=== PATIENT | female | born 1995 | race Caucasian/White ===

== ENCOUNTER 2017-07-12 08:01 | Emergency (ER) | payer SELFPAY ==
[~2017-07-12] VITALS: Ht 160 cm; Wt 65.8 kg
[~2017-07-12 08:01] MED LIST: AZIT250T PO; BCP; CEFP500T4 PO; CEPH500C PO; CIPR500T78 PO; CLIN300C3 PO; Cortisporin otic; DEPRESSION MEDS; FLINTSTONE1 TAB.CHE4 PO; FRS325T PO; HYDR-3454 PO; HYDR-757 PO; IBP600T1 PO; LORA1TAB59 PO; MECL-124 PO; METH4TAB PO; METR500T PO; NAPR-243 PO; NITR-65 PO; NITR100C3 PO; ONDA4TAB11 PO; ONDA4TAB8 PO; ONDA8TAB9 PO; ONDAN4ODT PO; OXYC-12 PO; SULF1TAB35 PO; TRAM50TA2 PO; TRIA10.8 NSEACH
--- OUTSIDE RECORDS SUMMARY | 2017-07-12 08:07 | XMS REPORT ---
Author ELIZABETH Fontenot [facility] [employer] Address Unknown Phone Unavailable Care Team Providers Care Enrollment Counselor Name Role Phone ELIZABETH CHAVEZ CP Unavailable Allergies, Adverse Reactions, Alerts Substance Reaction Event Type Penicillin G Potassium Info Not Available Drug Allergy Problems Problem Type Condition Code Onset Dates Condition Status Assessment Dental caries K02.9 Active Medications No Known Medications Procedures Procedure Coding System Code Date EXTRAC ERUPTED TOOTH/EXPOSED ROOT CPT-4 D7140 March 30, 2016 Vital Signs Date/Time: March 30, 2016 Blood Pressure Diastolic 82 mmHg Blood Pressure Systolic 130 mmHg Results No Known Results Summary Purpose eClinicalWorks Submission
--- OUTSIDE RECORDS SUMMARY | 2017-07-12 08:10 | XMS REPORT | Continuity of Care Document ---
Author Author [facility] Organization [facility] Address Unknown Phone Unavailable Allergies Active Description Code Type Severity Reaction Onset Reported/Identified Relationship to Patient Clinical Status Yes Penicillins [id number] Drug Allergy Unknown RASH 11/14/2015 Medications Problems Date Dx Coded Attending Type Code Diagnosis Diagnosed By 11/23/2012 Ot 599.0 URIN TRACT INFECTION NOS 11/23/2012 Ot 644.03 THRT WILLIAM LABOR-ANTEPART 11/23/2012 Ot 646.63 INFECTION-ANTEPARTUM 11/26/2012 Ot 646.13 EDEMA IN PREG-ANTEPARTUM 12/06/2012 Ot 599.0 URIN TRACT INFECTION NOS 12/06/2012 Ot 644.03 THRT WILLIAM LABOR-ANTEPART 12/06/2012 Ot 646.63 INFECTION-ANTEPARTUM 12/12/2012 Ot 663.31 CORD ENTANGLE NEC-DELIV 12/12/2012 Ot V27.0 DELIVER-SINGLE LIVEBORN 02/25/2013 KOFI CASTELLON Ot 599.0 URIN TRACT INFECTION NOS 02/25/2013 KOFI CASTELLON Ot 780.2 SYNCOPE AND COLLAPSE 02/25/2013 KOFI CASTELLON Ot 787.03 VOMITING ALONE 03/12/2013 TREVOR EDWARDS DO Ot 300.00 ANXIETY STATE NOS 03/12/2013 ALLEGRA EDWARDS DOA Ayden Ot 311 DEPRESSIVE DISORDER NEC 03/12/2013 TREVOR EDWARDS DO Ot 599.0 URIN TRACT INFECTION NOS 03/12/2013 TREVOR EDWARDS DO Ot 714.0 RHEUMATOID ARTHRITIS 03/12/2013 TREVOR EDWARDS DO Ot 789.00 ABDOMINAL PAIN, UNSPECIFIED SITE 02/23/2014 KOFI CASTELLON Ot 729.5 PAIN IN LIMB 02/23/2014 KOFI CASTELLON Ot 845.00 SPRAIN OF ANKLE NOS 02/23/2014 KOFI CASTELLON Ot E927.0 OVEREXERTION FROM SUDDEN STRENUOUS MOVEM 04/12/2014 ALISSA ORTIZ MD Ot 599.0 URIN TRACT INFECTION NOS 09/06/2014 Ot 649.63 09/06/2014 Ot 640.93 09/06/2014 Ot 649.63 09/06/2014 Ot V28.89 09/06/2014 CAITIE PERLA MD Ot 629.89 09/06/2014 CAITIE PERLA MD Ot 789.01 09/06/2014 REBEL SOARES, WILLIAM Bear Ot 599.0 URIN TRACT INFECTION NOS 09/06/2014 REBEL SOARES, WILLIAM Bear Ot 787.01 NAUSEA WITH VOMITING 09/06/2014 REBEL SOARES, WILLIAM Bear Ot 787.03 VOMITING ALONE 09/06/2014 REBEL SOARES, WILLIAM Bear Ot 787.91 DIARRHEA 12/29/2014 Ot 649.63 12/29/2014 Ot 640.93 12/29/2014 Ot 649.63 12/29/2014 Ot V28.89 12/29/2014 CAITIE PERLA MD Ot 629.89 12/29/2014 CAITIE PERLA MD Ot 789.01 12/29/2014 TREVOR EDWARDS DO Ot 911.4 INSECT BITE TRUNK 12/29/2014 TREVOR EDWARDS DO Ot E000.8 OTHER EXTERNAL CAUSE STATUS 12/29/2014 TREVOR EDWARDS DO Ot E906.4 NONVENOM ARTHROPOD BITE 12/29/2014 Ot 649.63 12/29/2014 Ot 640.93 12/29/2014 Ot 649.63 12/29/2014 Ot V28.89 12/29/2014 CAITIE PERLA MD Ot 629.89 12/29/2014 CAITIE PERLA MD Ot 789.01 05/07/2015 Ot 649.63 05/07/2015 Ot 640.93 05/07/2015 Ot 649.63 05/07/2015 Ot V28.89 05/07/2015 CAITIE PERLA MD Ot 629.89 05/07/2015 CAITIE PERLA MD Ot 789.01 05/07/2015 ALISSA ORTIZ MD Ot 786.50 CHEST PAIN NOS 05/07/2015 DIANA SOARES, ALISSA Hensley Ot 786.52 PAINFUL RESPIRATION 05/18/2015 TREVOR EDWARDS DO Ot 381.10 CHR SEROUS OM SIMP/NOS 05/18/2015 TREVOR EDWARDS DO Ot 464.00 ACUTE LARYNGITIS W/O OBSTRUCTION 05/18/2015 TREVOR EDWARDS DO Ot 466.0 ACUTE BRONCHITIS 05/18/2015 TREVOR EDWARDS DO Ot 473.9 CHRONIC SINUSITIS NOS 05/18/2015 TREVOR EDWARDS DO Ot 786.2 COUGH 05/18/2015 Ot 649.63 05/18/2015 Ot 640.93 05/18/2015 Ot 649.63 05/18/2015 Ot V28.89 05/18/2015 CAITIE PERLA MD Ot 629.89 05/18/2015 CAITIE PERLA MD Ot 789.01 11/14/2015 Ot 649.63 11/14/2015 Ot 640.93 11/14/2015 Ot 649.63 11/14/2015 Ot V28.89 11/14/2015 CAITIE PERLA MD Ot 629.89 11/14/2015 CAITIE PERLA MD Ot 789.01 11/17/2015 CAITIE PERLA MD Ot B96.20 UNSP ESCHERICHIA COLI THE CAUSE OF DI 11/17/2015 CAITIE PERLA MD Ot I88.0 NONSPECIFIC MESENTERIC LYMPHADENITIS 11/17/2015 CAITIE PERLA MD Ot K85.9 ACUTE PANCREATITIS, UNSPECIFIED 11/17/2015 CAITIE PERLA MD Ot N26.1 ATROPHY OF KIDNEY (TERMINAL) 11/17/2015 CAITIE PERLA MD Ot N39.0 URINARY TRACT INFECTION, SITE NOT SPECIF 12/24/2015 SATURNINO MIRELES APRN Ot S60.221A CONTUSION OF RIGHT HAND, INITIAL ENCOUNT 12/24/2015 SATURNINO MIRELES APRN Ot W22.09XA STRIKING AGAINST OTHER STATIONARY OBJECT 12/24/2015 SATURNINO MIRELES APRN Ot Y99.8 OTHER EXTERNAL CAUSE STATUS 01/06/2016 CAITIE PERLA MD Ot K85.9 ACUTE PANCREATITIS, UNSPECIFIED 01/06/2016 CAITIE PERLA MD, Ot K85.9 ACUTE PANCREATITIS, UNSPECIFIED 01/23/2016 CYRUS AMANDA, KOFI L Ot R10.12 LEFT UPPER QUADRANT PAIN 01/23/2016 KOFI CASTELLON Ot R11.0 NAUSEA 01/25/2016 KOFI CASTELLON Ot R10.12 LEFT UPPER QUADRANT PAIN 01/25/2016 CYRUS AMANDA KOFI L Ot R11.0 NAUSEA 01/29/2016 SATURNINO MIRELES APRN Ot R10.13 EPIGASTRIC PAIN 01/29/2016 SATURNINO MIRELES APRN Ot Z87.19 PERSONAL HISTORY OF OTHER DISEASES OF TH 01/29/2016 Ot 649.63 UTERINE SIZE DATE DISCREPANCY, ANTEPARTU 01/29/2016 Ot 640.93 HEM EARLY PREG-ANTEPART 01/29/2016 Ot 649.63 UTERINE SIZE DATE DISCREPANCY, ANTEPARTU 01/29/2016 Ot V28.89 OTHER SPECIFIED SCREENING 01/29/2016 CAITIE PERLA MD Ot 629.89 OTHER SPECIFIED DISORDERS OF FEMALE MARIAELENA 01/29/2016 CAITIE PERLA MD Ot 789.01 ABDOMINAL PAIN, RIGHT UPPER QUADRANT 02/02/2016 SATURNINO MIRELES APRN Ot R10.13 EPIGASTRIC PAIN 02/02/2016 SATURNINO MIRELES APRN Ot Z87.19 PERSONAL HISTORY OF OTHER DISEASES OF 02/02/2016 Ot 649.63 UTERINE SIZE DATE DISCREPANCY, ANTEPARTU 02/02/2016 Ot 640.93 HEM EARLY PREG-ANTEPART 02/02/2016 Ot 649.63 UTERINE SIZE DATE DISCREPANCY, ANTEPARTU 02/02/2016 Ot V28.89 OTHER SPECIFIED SCREENING 02/02/2016 PAN SOARES, CAITIE Duke Ot 629.89 OTHER SPECIFIED DISORDERS OF FEMALE MARIAELENA 02/02/2016 CAITIE PERLA MD Ot 789.01 ABDOMINAL PAIN, RIGHT UPPER QUADRANT 02/02/2016 SATURNINO MIRELES APRN Ot R10.13 EPIGASTRIC PAIN 02/02/2016 SATURNINO MIRELES APRN Ot Z87.19 PERSONAL HISTORY OF OTHER DISEASES OF 02/04/2016 Ot 649.63 UTERINE SIZE DATE DISCREPANCY, ANTEPARTU 02/04/2016 Ot 640.93 HEM EARLY PREG-ANTEPART 02/04/2016 Ot 649.63 UTERINE SIZE DATE DISCREPANCY, ANTEPARTU 02/04/2016 Ot V28.89 OTHER SPECIFIED SCREENING 02/04/2016 CAITIE PERLA MD Ot 629.89 OTHER SPECIFIED DISORDERS OF FEMALE MARIAELENA 02/04/2016 CAITIE PERLA MD Ot 789.01 ABDOMINAL PAIN, RIGHT UPPER QUADRANT 02/04/2016 SATURNINO MIRELES OCCUPATIONAL THERAPIST Ot R10.13 EPIGASTRIC PAIN 02/04/2016 SATURNINO MIRELES OCCUPATIONAL THERAPIST Ot Z87.19 PERSONAL HISTORY OF OTHER DISEASES OF TH 02/05/2016 CAITIE PERLA MD Ot K85.9 ACUTE PANCREATITIS, UNSPECIFIED 02/05/2016 CAITIE PERLA MD Ot K85.9 ACUTE PANCREATITIS, UNSPECIFIED 02/08/2016 Ot 649.63 UTERINE SIZE DATE DISCREPANCY, ANTEPARTU 02/08/2016 Ot 640.93 HEM EARLY PREG-ANTEPART 02/08/2016 Ot 649.63 UTERINE SIZE DATE DISCREPANCY, ANTEPARTU 02/08/2016 Ot V28.89 OTHER SPECIFIED SCREENING 02/08/2016 CAITIE PERLA MD Ot 629.89 OTHER SPECIFIED DISORDERS OF FEMALE MARIAELENA 02/08/2016 CAITIE PERLA MD Ot 789.01 ABDOMINAL PAIN, RIGHT UPPER QUADRANT 02/08/2016 CAITIE PERLA MD Ot K85.9 ACUTE PANCREATITIS, UNSPECIFIED 02/08/2016 SATURNINO MIRELES OCCUPATIONAL THERAPIST Ot R10.13 EPIGASTRIC PAIN 02/08/2016 SATURNINO MIRELES APRN Ot Z87.19 PERSONAL HISTORY OF OTHER DISEASES OF TH 02/08/2016 CAITIE PERLA MD Ot K81.1 CHRONIC CHOLECYSTITIS 02/08/2016 CAITIE PERLA MD Ot K82.8 OTHER SPECIFIED DISEASES OF GALLBLADDER 02/09/2016 CAITIE PERLA MD Ot K85.9 ACUTE PANCREATITIS, UNSPECIFIED 03/02/2016 CAITIE PERLA MD Ot K81.1 CHRONIC CHOLECYSTITIS 03/02/2016 CAITIE PERLA MD Ot K82.8 OTHER SPECIFIED DISEASES OF GALLBLADDER 03/28/2016 Ot 649.63 UTERINE SIZE DATE DISCREPANCY, ANTEPARTU 03/28/2016 Ot 640.93 HEM EARLY PREG-ANTEPART 03/28/2016 Ot 649.63 UTERINE SIZE DATE DISCREPANCY, ANTEPARTU 03/28/2016 Ot V28.89 OTHER SPECIFIED SCREENING 03/28/2016 CAITIE PERLA MD Ot 629.89 OTHER SPECIFIED DISORDERS OF FEMALE MARIAELENA 03/28/2016 CAITIE PERLA MD Ot 789.01 ABDOMINAL PAIN, RIGHT UPPER QUADRANT 03/28/2016 CIATIE PERLA MD Ot K85.9 ACUTE PANCREATITIS, UNSPECIFIED 03/28/2016 CAITIE PERLA MD Ot K85.9 ACUTE PANCREATITIS, UNSPECIFIED 03/29/2016 SATURNINO MIRELES OCCUPATIONAL THERAPIST Ot R10.13 EPIGASTRIC PAIN 03/29/2016 SATURNINO MIRELES APRN Ot Z87.19 PERSONAL HISTORY OF OTHER DISEASES OF TH 04/08/2016 CAITIE PERLA MD Ot K81.1 CHRONIC CHOLECYSTITIS 04/08/2016 CAITIE PERLA MD Ot K82.8 OTHER SPECIFIED DISEASES OF GALLBLADDER 04/17/2016 ALISSA ORTIZ MD Ot H60.501 UNSPECIFIED ACUTE NONINFECTIVE OTITIS EX 04/17/2016 ALISSA ORTIZ MD Ot J06.9 ACUTE UPPER RESPIRATORY INFECTION, UNSPE 04/17/2016 ALISSA ORTIZ MD Ot R05 COUGH 05/11/2016 ALISSA ORTIZ MD Ot H60.501 UNSPECIFIED ACUTE NONINFECTIVE OTITIS EX 05/11/2016 ALISSA ORTIZ MD Ot J06.9 ACUTE UPPER RESPIRATORY INFECTION, UNSPE 05/11/2016 ALISSA ORTIZ MD Ot R05 COUGH Procedures Code Description Performed By Performed On 73.6 12/10/2012 Results Encounters ACCT No. Visit Date/Time Discharge Status Pt. Type Provider Facility Loc./Unit Complaint [id number] 04/17/2016 08:28:00 2015 09:00:00 DIS Outpatient ALISSA ORTIZ MD [facility] ER R EAR PAIN, SINUS INFECTION [id number] 02/08/2016 00:30:00 2015 15:35:00 DIS Outpatient CAITIE PERLA MD [facility] [id number] 02/04/2016 11:18:00 2015 23:59:59 CLS Outpatient CAITIE PERLA MD [facility] CARD [id number] 01/29/2016 19:06:00 2015 20:36:00 DIS Outpatient SATURNINO MIRELES APRN [facility] ER [id number] 01/23/2016 19:00:00 2015 23:00:00 DIS Emergency CYRUS AMANDAKOFI [facility] [id number] 01/04/2016 09:51:00 2015 12:15:00 DIS Inpatient CAITIE PERLA MD [facility] [address] [id number] 12/24/2015 09:55:00 2015 11:22:00 DIS Emergency SATURNINO MIRELES APRN [facility] [id number] 11/14/2015 14:26:00 2015 09:00:00 DIS Inpatient CAITIE PERLA MD [facility] [address] [id number] 05/18/2015 20:59:00 2014 22:27:00 DIS Emergency GRACE DO TREVOR K [facility] [id number] 05/07/2015 09:22:00 2014 11:41:00 DIS Emergency ALISSA ORTIZ MD [facility] ER [id number] 12/29/2014 09:19:00 2014 09:34:00 DIS Emergency GRACE ALLEGRA RODA K [facility] [id number] 09/06/2014 08:46:00 2013 10:17:00 DIS Emergency WILLIAM LUQUE MD [facility] ER [id number] 04/12/2014 16:41:00 2013 18:52:00 DIS Emergency ALISSA ORTIZ MD [facility] ER [id number] 04/11/2014 10:39:00 2013 23:59:59 CLS Outpatient CAITIE PERLA MD [facility] [id number] 04/04/2014 13:43:00 2013 23:59:59 CLS Outpatient CAITIE PERLA MD [facility] [id number] 02/23/2014 13:15:00 2013 15:10:00 DIS Emergency KOFI CASTELLON [facility] ER [id number] 03/12/2013 12:27:00 2012 14:09:00 DIS Emergency GRACE ROD TREVOR Ayden [facility] ER [id number] 02/25/2013 20:40:00 2012 23:15:00 DIS Emergency KOFI CASTELLON [facility] ER [id number] 12/10/2012 02:48:00 Document Registration [id number] 12/05/2012 22:05:00 Document Registration [id number] 11/26/2012 00:36:00 Document Registration [id number] 11/21/2012 16:00:00 Document Registration [id number] 10/31/2012 09:37:00 Document Registration [id number] 08/16/2012 10:39:00 Document Registration [id number] 07/17/2012 09:40:00 Document Registration [id number] 06/20/2012 09:16:00 Document Registration
[2017-07-12] MEDS ORDERED: ONDANSETRON 4 MG (ZOFRAN) ORAL DISSOLVE TAB PO ONE (08:45)
[2017-07-12] MEDS ORDERED: LIDOCAINE 2% VISCOUS 15 ML UDC PO ONE (08:45)
[2017-07-12] MEDS ORDERED: ANTACID SUSP 30 ML UDC (MYLANTA) PO ONE (08:45)
[2017-07-12] MEDS ORDERED: METR500T PO (09:37)
[2017-07-12] MEDS ORDERED: CEFU500T63 PO (09:37)
--- NOTE | 2017-07-12 09:38 | ED General ---
General Chief Complaint: Abdominal/GI Problems Stated Complaint: N,V,D Nursing Triage Note: AMB TO ROOM REPORTS NOT FEELING WELL FOR 2 DAYS. ONSET OF VOMITING WITH DIARRHEA. Nursing Sepsis Screen: No Definite Risk Source of Information: Patient Exam Limitations: No Limitations History of Present Illness Time Seen by Provider: 08:26 Initial Comments This 22-year-old woman presents to the emergency room with complaints of generally feeling ill for about 2 days. She began vomiting and having diarrhea last night. The vomiting has stopped but she is still nauseated. She denies . She has mild generalized abdominal discomfort with cramping. Allergies and Home Medications Allergies Coded Allergies: Penicillins (Verified Allergy, Unknown, RASH, 11/14/15) Home Medications Ondansetron 4 Mg Tab.rapdis, 4 MG SL Q4H PRN for NAUSEA/VOMITING-1ST LINE, #10 Prescribed by: ISMA MOISE on 07/12/17 0949 Constitutional: see HPI, No fever EENTM: no symptoms reported Respiratory: no symptoms reported Cardiovascular: no symptoms reported Gastrointestinal: see HPI : No Musculoskeletal: no symptoms reported Skin: no symptoms reported Psychiatric/Neurological: No Symptoms Reported Hematologic/Lymphatic: No Symptoms Reported Past Qvtoqdg-Oynvnr-Pcvvll Hx Patient Social History Alcohol Use: Denies Use Recreational Drug Use: No Smoking Status: Former Smoker Recent Foreign Travel: No Contact w/Someone Who Travel: No Recent Infectious Disease Expo: No Recent Hopitalizations: No Immunizations Up To Date Tetanus Booster (TDap): Less than 5yrs Date of Influenza Vaccine: Sep 24, 2012 Seasonal Allergies Seasonal Allergies: No Surgeries History of Surgeries: Yes Surgeries: Gallbladder Respiratory History of Respiratory Disorde: No Currently Using CPAP: No Currently Using BIPAP: No Cardiovascular History of Cardiac Disorders: No Neurological History of Neurological Disord: No Reproductive System : No Hx Reproductive Disorders: No Sexually Transmitted Disease: No HIV/AIDS: No Female Reproductive Disorders: Denies Genitourinary History of Genitourinary Disor: Yes Genitourinary Disorders: UTI-Chronic Gastrointestinal History of Gastrointestinal Di: Yes Gastrointestinal Disorders: Pancreatitis, Gall Bladder Disease Musculoskeletal History of Musculoskeletal Dis: Yes Musculoskeletal Disorders: Rheumatoid Arthritis, Fractures Endocrine History of Endocrine Disorders: No HEENT Loss of Vision: Denies Hearing Impairment: Denies Cancer History of Cancer: No Psychosocial History of Psychiatric Problem: Yes Behavioral Health Disorders: Anxiety, Depression Integumentary History of Skin or Integumenta: No Skin/Integumentary Disorders: Eczema Blood Transfusions History of Blood Disorders: No Adverse Reaction to a Blood Tr: No Family Medical History Significant Family History: No Pertinent Family Hx Family Medial History: DENIES FAMILY HX Physical Exam Vital Signs Vital Sign - Last 12Hours 07/12/17 07/12/17 08:17 09:55 Temp 98.5 Pulse 80 Resp 18 Pulse Ox 98 Capillary Refill : Less Than 3 Seconds General Appearance: No Apparent Distress, WD/WN HEENT: Normal ENT Inspection, Pharynx Normal Neck: Normal Inspection Respiratory: Lungs Clear, Normal Breath Sounds, No Accessory Muscle Use, No Respiratory Distress Cardiovascular: Regular Rate, Rhythm, No Edema, No Murmur Gastrointestinal: Normal Bowel Sounds, Soft, Tenderness (Minimal, generalized) Extremity: Normal Inspection, No Pedal Edema Neurologic/Psychiatric: Alert, Oriented x3, No Motor/Sensory Deficits, Normal Mood/Affect Skin: Normal Color, Warm/Dry Progress/Results/Core Measures Results/Orders My Orders Medications Given in ED Vital Signs/I&O Progress Note : Progress Note Nausea resolved with Zofran and abdominal pain resolved with GI cocktail. Departure Impression Impression: Primary Impression: Nausea vomiting and diarrhea Additional Impressions: Upper abdominal pain Gastritis Qualified Codes: K29.00 - Acute gastritis without bleeding Disposition: HOME, SELF-CARE Condition: Improved Departure-Patient Inst. Decision time for Depature: 09:35 Referrals: CAITIE PERLA MD (PCP/Family) Primary Care Physician Patient Instructions: Acute Abdomen (Belly Pain), Adult (DC) Add. Discharge Instructions: Drink plenty of clear liquids. Take an antacid such as Pepcid (famotidine) or Prilosec (omeprazole) purchased [id number] for abdominal pain. You may also take Tylenol (acetaminophen) up to 1000 mg every 6 hours as needed for additional pain relief. Gradually advance your diet with small quantities of bland food as tolerated. Take Zofran (ondansetron) dissolved under the tongue every 4 hours as needed for nausea and vomiting. You may use Imodium over-the- counter for diarrhea. Return to care if symptoms worsen. All discharge instructions reviewed with patient and/or family. Voiced understanding. Scripts Ondansetron (Zofran Odt) 4 Mg Tab.rapdis 4 MG SL Q4H Y for NAUSEA/VOMITING-1ST LINE, #10 TAB Prov: ISMA GAONA MD 07/12/17 ISMA GAONA MD Jul 12, 2017 09:38
[2017-07-12] MEDS ORDERED: ONDA4TAB8 SL (09:49)
[2017-07-12 09:55] VITALS: BP 122/80
== END 2017-07-12 09:52 | disposition home or self-care (01) ==
LOC: EDUNIT# 08:01 → ER 08:03
DX: K52.9 Noninfective gastroenteritis and colitis, unspecified (principal); M06.9 Rheumatoid arthritis, unspecified; F41.9 Anxiety disorder, unspecified; F32.9 Major depressive disorder, single episode, unspecified; Z87.81 Personal history of (healed) traumatic fracture; Z87.19 Personal history of other diseases of the digestive system; Z87.891 Personal history of nicotine dependence
CPT/HCPCS: 99283

== ENCOUNTER 2017-08-30 20:48 | Emergency (ER) | payer SELFPAY ==
[~2017-08-30] VITALS: Ht 160 cm; Wt 64.9 kg
[~2017-08-30 20:48] MED LIST changes: +CEFU500T63 PO; +ONDA4TAB8 SL
[2017-08-30] MEDS ORDERED: DIPH25CA79 PO (22:45)
[2017-08-30] MEDS ORDERED: PRD20T PO (22:54)
--- NOTE | 2017-08-30 22:54 | ED Integumentary General ---
General Chief Complaint: Skin/Wound Problems Stated Complaint: RASH Nursing Triage Note: pt c/o red, itchy, raised areas on skin since monday. she reports they come and go. reports benadryl improves the itchiness, but does not resolve the rash. Source: patient Exam Limitations: no limitations History of Present Illness Time seen by provider: 22:52 Initial Comments To ER with red itchy bumps for the past 3-4 days. They come and go. Benadryl helps the itchiness but the bumps still pop up. Mostly on the back of her arms and legs but she also has some on her torso. No known cause. Timing/Duration: just prior to arrival Severity: moderate Allergies and Home Medications Allergies Coded Allergies: Penicillins (Verified Allergy, Unknown, RASH, 11/14/15) Home Medications Diphenhydramine HCl 25 Mg Capsule, 50 MG PO PRN, (Reported) Constitutional: see HPI EENTM: see HPI Respiratory: no symptoms reported Cardiovascular: no symptoms reported Genitourinary: no symptoms reported Musculoskeletal: no symptoms reported Skin: see HPI Psychiatric/Neurological: No Symptoms Reported Endocrine: No Symptoms Reported Past Uhtamel-Xdiiqr-Kxbxfv Hx Patient Social History Alcohol Use: Denies Use Recreational Drug Use: No 2nd Hand Smoke Exposure: No Recent Foreign Travel: No Contact w/Someone Who Travel: No Recent Infectious Disease Expo: No Recent Hopitalizations: No Immunizations Up To Date Tetanus Booster (TDap): Less than 5yrs Date of Influenza Vaccine: Sep 24, 2012 Seasonal Allergies Seasonal Allergies: No Surgeries History of Surgeries: Yes Surgeries: Gallbladder Respiratory History of Respiratory Disorde: No Currently Using CPAP: No Currently Using BIPAP: No Cardiovascular History of Cardiac Disorders: No Neurological History of Neurological Disord: No Reproductive System Last Menstrual Period: Aug 10, 2017 Hx Reproductive Disorders: No Sexually Transmitted Disease: No HIV/AIDS: No Female Reproductive Disorders: Denies Genitourinary History of Genitourinary Disor: Yes Genitourinary Disorders: UTI-Chronic Gastrointestinal History of Gastrointestinal Di: Yes Gastrointestinal Disorders: Pancreatitis, Gall Bladder Disease Musculoskeletal History of Musculoskeletal Dis: Yes Musculoskeletal Disorders: Rheumatoid Arthritis, Fractures Endocrine History of Endocrine Disorders: No HEENT Loss of Vision: Denies Hearing Impairment: Denies Cancer History of Cancer: No Psychosocial History of Psychiatric Problem: Yes Behavioral Health Disorders: Anxiety, Depression Integumentary History of Skin or Integumenta: No Skin/Integumentary Disorders: Eczema Blood Transfusions History of Blood Disorders: No Adverse Reaction to a Blood Tr: No Family Medical History Significant Family History: No Pertinent Family Hx Family Medial History: DENIES FAMILY HX Physical Exam Vital Signs Vital Sign - Last 12Hours 08/30/17 22:41 Temp 98.8 Pulse 100 Resp 16 B/P (MAP) 126/86 (99) Capillary Refill : Less Than 3 Seconds General Appearance: WD/WN, no apparent distress HEENT: PERRL/EOMI, normal ENT inspection Neck: non-tender, full range of motion Respiratory: no respiratory distress, no accessory muscle use Neurologic/Psychiatric: alert, normal mood/affect, oriented x 3 Skin: normal color, warm/dry (erythematous papules on erythematous base on the dorsal aspect of her arms a linear pattern consistent with bedbug bites. I suggested that this might be bedbugs but she states this is not likely.) Progress/Results/Core Measures Results/Orders Vital Signs/I&O Vital Sign - Last 12Hours 08/30/17 22:41 Temp 98.8 Pulse 100 Resp 16 B/P (MAP) 126/86 (99) Blood Pressure Mean: 99 Departure Impression Impression: Primary Impression: Rash and nonspecific skin eruption Disposition: 01 HOME, SELF-CARE Condition: Stable Departure-Patient Inst. Decision time for Depature: 22:53 Referrals: CAITIE PERLA MD (PCP/Family) Primary Care Physician Patient Instructions: Skin Rash Add. Discharge Instructions: 1. Return to ER for any worsening. If rash persists follow up with your doctor next week. Take the steroids as directed. 2. All discharge instructions reviewed with patient and/or family. Voiced understanding. Scripts Prednisone (Prednisone) 20 Mg Tab 40 MG PO DAILY, #6 TAB Prov: SATURNINO MIRELES APRN 08/30/17 SATURNINO MIRELES APRN Aug 30, 2017 22:54
[2017-08-30 22:55] VITALS: BP 118/74
--- OUTSIDE RECORDS SUMMARY | 2017-08-31 10:16 | XMS REPORT | Continuity of Care Document ---
Author Author [facility] Organization [facility] Address Unknown Phone Unavailable Allergies Active Description Code Type Severity Reaction Onset Reported/Identified Relationship to Patient Clinical Status Yes Penicillins [id number] Drug Allergy Unknown RASH 11/14/2015 Medications There is no data. Problems Date Dx Coded Attending Type Code Diagnosis Diagnosed By 11/23/2012 Ot 599.0 URIN TRACT INFECTION NOS 11/23/2012 Ot 644.03 THRT WILLIAM LABOR-ANTEPART 11/23/2012 Ot 646.63 INFECTION -ANTEPARTUM 11/26/2012 Ot 646.13 EDEMA IN PREG-ANTEPARTUM 12/06/2012 Ot 599.0 URIN TRACT INFECTION NOS 12/06/2012 Ot 644.03 THRT WILLIAM LABOR-ANTEPART 12/06/2012 Ot 646.63 INFECTION -ANTEPARTUM 12/12/2012 Ot 663.31 CORD ENTANGLE NEC-DELIV 12/12/2012 Ot V27.0 DELIVER- SINGLE LIVEBORN 02/25/2013 KOFI CASTELLON Ot 599.0 URIN TRACT INFECTION NOS 02/25/2013 KOFI CASTELLON Ot 780.2 SYNCOPE AND COLLAPSE 02/25/2013 KOFI CASTELLON Ot 787.03 VOMITING ALONE 03/12/2013 TREVOR EDWARDS DO Ot 300.00 ANXIETY STATE NOS 03/12/2013 TREVOR EDWARDS DO Ot 311 DEPRESSIVE DISORDER NEC 03/12/2013 TREVOR EDWARDS DO Ot 599.0 URIN TRACT INFECTION NOS 03/12/2013 TREVOR EDWARDS DO Ot 714.0 RHEUMATOID ARTHRITIS 03/12/2013 TREVOR EDWARDS DO Ot 789.00 ABDOMINAL PAIN, UNSPECIFIED SITE 02/23/2014 KOFI CASTELLON Ot 729.5 PAIN IN LIMB 02/23/2014 KOFI CASTELLON Ot 845.00 SPRAIN OF ANKLE NOS 02/23/2014 CYRUS PA, KOFI L Ot E927.0 OVEREXERTION FROM SUDDEN STRENUOUS MOVEM 04/12/2014 ALISSA ORTIZ MD Ot 599.0 URIN TRACT INFECTION NOS 09/06/2014 Ot 649.63 09/06/2014 Ot 640.93 09/06/2014 Ot 649.63 09/06/2014 Ot V28.89 09/06/2014 CAITIE PERLA MD Ot 629.89 09/06/2014 CAITIE PERLA MD Ot 789.01 09/06/2014 REBEL SOARES, WILLIAM Bear Ot 599.0 URIN TRACT INFECTION NOS 09/06/2014 REBEL SOARES, WILLIAM Bear Ot 787.01 NAUSEA WITH VOMITING 09/06/2014 WILLIAM LUQUE MD Ot 787.03 VOMITING ALONE 09/06/2014 WILLIAM LUQUE MD Ot 787.91 DIARRHEA 12/29/2014 Ot 649.63 12/29/2014 [...] I88.0 NONSPECIFIC MESENTERIC LYMPHADENITIS 11/17/2015 CAITIE PERLA MD, Ot K85.9 ACUTE PANCREATITIS, UNSPECIFIED 11/17/2015 CAITIE [...] Ot K85.9 ACUTE PANCREATITIS, UNSPECIFIED 01/23/2016 CYRUS VASILIY, KOFI Bowen Ot R10.12 LEFT UPPER QUADRANT PAIN 01/23/2016 CYRUS AMANDA, KOFI Bowen Ot R11.0 NAUSEA 01/25/2016 CYRUS AMANDA, KOFI Andrés Ot R10.12 LEFT UPPER QUADRANT PAIN 01/25/2016 CYRUS AMANDAKOFI Ot R11.0 NAUSEA 01/29/2016 SATURNINO MIRELES APRN [...] MIRELES APRN Ot R10.13 EPIGASTRIC PAIN 02/02/2016 SATURINNO MIRELES APRN Ot Z87.19 PERSONAL HISTORY OF OTHER DISEASES OF 02/02/2016 Ot 649.63 UTERINE SIZE DATE DISCREPANCY, ANTEPARTU 02/02/2016 Ot 640.93 HEM EARLY PREG-ANTEPART 02/02/2016 Ot 649.63 UTERINE SIZE DATE DISCREPANCY, ANTEPARTU 02/02/2016 Ot V28.89 OTHER SPECIFIED SCREENING 02/02/2016 CAITIE PERLA MD Ot 629.89 OTHER SPECIFIED [...] PAIN, RIGHT UPPER QUADRANT 02/04/2016 SATURNINO MIRELES APRN Ot R10.13 EPIGASTRIC PAIN 02/04/2016 SATURNINO MIRELES SPECIAL PROCEDURES TECH Ot Z87.19 PERSONAL HISTORY OF OTHER DISEASES [...] K85.9 ACUTE PANCREATITIS, UNSPECIFIED 02/08/2016 SATURNINO MIRELES APRN Ot R10.13 EPIGASTRIC PAIN 02/08/2016 SATURNINO MIRELES [...] 789.01 ABDOMINAL PAIN, RIGHT UPPER QUADRANT 03/28/2016 CAITIE PERLA MD Ot K85.9 ACUTE PANCREATITIS, UNSPECIFIED 03/28/2016 CAITIE PERLA MD Ot K85.9 ACUTE PANCREATITIS, UNSPECIFIED 03/29/2016 SATURNINO MIRELES APRN Ot R10.13 EPIGASTRIC PAIN 03/29/2016 SATURNINO MIRELES [...] 05/11/2016 ALISSA ORTIZ MD Ot R05 COUGH 07/12/2017 ISMA GAONA MD Ot F32.9 MAJOR DEPRESSIVE DISORDER, SINGLE EPISOD 07/12/2017 ISMA GAONA MD Ot F41.9 ANXIETY DISORDER, UNSPECIFIED 07/12/2017 ISMA GAONA MD Ot K52.9 NONINFECTIVE GASTROENTERITIS AND COLITIS 07/12/2017 ISMA GAONA MD Ot M06.9 RHEUMATOID ARTHRITIS, UNSPECIFIED 07/12/2017 ISMA GAONA MD Ot R19.7 DIARRHEA, UNSPECIFIED 07/12/2017 ISMA GAONA MD Ot Z87.19 PERSONAL HISTORY OF OTHER DISEASES OF TH 07/12/2017 ISMA GAONA MD Ot Z87.81 PERSONAL HISTORY OF (HEALED) TRAUMATIC F 07/12/2017 ISMA GAONA MD Ot Z87.891 PERSONAL HISTORY OF NICOTINE DEPENDENCE 07/18/2017 ISMA GAONA MD Ot F32.9 MAJOR DEPRESSIVE DISORDER, SINGLE EPISOD 07/18/2017 ISMA GAONA MD Ot F41.9 ANXIETY DISORDER, UNSPECIFIED 07/18/2017 ISMA GAONA MD Ot K52.9 NONINFECTIVE GASTROENTERITIS AND COLITIS 07/18/2017 ISMA GAONA MD Ot M06.9 RHEUMATOID ARTHRITIS, UNSPECIFIED 07/18/2017 ISMA GAONA MD Ot R19.7 DIARRHEA, UNSPECIFIED 07/18/2017 ISMA GAONA MD Ot Z87.19 PERSONAL HISTORY OF OTHER DISEASES OF TH 07/18/2017 ISMA GAONA MD Ot Z87.81 PERSONAL HISTORY OF (HEALED) TRAUMATIC F 07/18/2017 ISMA GAONA MD Ot Z87.891 PERSONAL HISTORY OF NICOTINE DEPENDENCE Procedures Code Description Performed By Performed On 73.6 12/10/2012 Results There is no data. Encounters ACCT No. Visit Date/Time Discharge Status Pt. Type Provider Facility Loc./Unit Complaint [id number] 07/12/2017 08:03:00 07/12/2017 09:52:00 DIS Emergency ISMA GAONA MD [facility] ER N,V,D [id number] 04/17/2016 08:28:00 04/17/2016 09:00:00 DIS Outpatient ALISSA ORTIZ MD [facility] ER R EAR PAIN, SINUS INFECTION [id number] 02/08/2016 00:30:00 02/08/2016 15:35:00 DIS Outpatient CAITIE PERLA MD [facility] [id number] 02/04/2016 11:18:00 02/04/2016 23:59:59 CLS Outpatient CAITIE PERLA MD [facility] [id number] 01/29/2016 19:06:00 01/29/2016 20:36:00 DIS Outpatient SATURNINO MIRELES APRN [facility] [id number] 01/23/2016 19:00:00 01/23/2016 23:00:00 DIS Emergency KOFI CASTELLON [facility] [id number] 01/04/2016 09:51:00 01/06/2016 12:15:00 DIS Inpatient CAITIE PERLA MD [facility] [address] [id number] 12/24/2015 09:55:00 12/24/2015 11:22:00 DIS Emergency SATURNINO MIRELES APRN [facility] [id number] 11/14/2015 14:26:00 11/17/2015 09:00:00 DIS Inpatient CAITIE PERLA MD Via [address] [id number] 05/18/2015 20:59:00 05/18/2015 22:27:00 DIS Emergency TREVOR EDWARDS DO [facility] [id number] 05/07/2015 09:22:00 05/07/2015 11:41:00 DIS Emergency ALISSA ORTIZ MD [facility] [id number] 12/29/2014 09:19:00 12/29/2014 09:34:00 DIS Emergency TREVOR EDWARDS DO [facility] [id number] 09/06/2014 08:46:00 09/06/2014 10:17:00 DIS Emergency WILLIAM LUQUE MD [facility] ER [id number] 04/12/2014 16:41:00 04/12/2014 18:52:00 DIS Emergency ALISSA ORTIZ MD [facility] ER [id number] 04/11/2014 10:39:00 04/11/2014 23:59:59 CLS Outpatient CAITIE PERLA MD [facility] [id number] 04/04/2014 13:43:00 04/04/2014 23:59:59 CLS Outpatient CAITIE PERLA MD [facility] [id number] 02/23/2014 13:15:00 02/23/2014 15:10:00 DIS Emergency KOFI CASTELLON [facility] ER [id number] 03/12/2013 12:27:00 03/12/2013 14:09:00 DIS Emergency GRACE ROD TREVOR Hensley [facility] ER [id number] 02/25/2013 20:40:00 02/25/2013 23:15:00 DIS Emergency KOFI CASTELLON [facility] ER [id number] 08/30/2017 20:49:00 ACT Emergency JOANNE CONNER MD [facility] ER RASH [id number] 12/10/2012 02:48:00 Document Registration [id number] 12/05/2012 22:05:00 Document Registration [id number] 11/26/2012 00:36:00 Document Registration [id number] 11/21/2012 16:00:00 Document Registration [id number] 10/31/2012 09:37:00 Document Registration [id number] 08/16/2012 10:39:00 Document Registration [id number] 07/17/2012 09:40:00 Document Registration [id number] 06/20/2012 09:16:00 Document Registration
== END 2017-08-30 22:55 | disposition home or self-care (01) ==
LOC: EDUNIT# 20:48 → ER 20:49
DX: R21 Rash and other nonspecific skin eruption (principal); M06.9 Rheumatoid arthritis, unspecified; F41.9 Anxiety disorder, unspecified; F32.9 Major depressive disorder, single episode, unspecified
CPT/HCPCS: 99282

== ENCOUNTER 2018-12-17 14:46 | Emergency (ER) | payer SELFPAY ==
[~2018-12-17] VITALS: Ht 160 cm; Wt 65.1 kg
[~2018-12-17 14:46] MED LIST changes: +DIPH25CA79 PO; -HYDR-3454 PO; +HYDR-3455 PO; +HYDR-4226 PO; -HYDR-757 PO; +PRD20T PO
--- NOTE | 2018-12-17 14:57 | ED Lower Extremity ---
General Chief Complaint: Lower Extremity Stated Complaint: R ANKLE INJ Source: patient Exam Limitations: no limitations History of Present Illness Date Seen by Provider: Dec 17, 2018 Time Seen by Provider: 14:48 Initial Comments The patient presents to ER by private conveyance with chief complaint that about an hour ago she was stepping off a small porch to get into her car and rolled her ankle inwardly. Should quite a bit of pain immediately and felt a popping sensation. She went into her house proper foot up with an ice pack on it and took some Tylenol but did not receive a lot of relief from that. She says she is having increasing swelling on the side of her right foot so she decided to have it x-rayed. No history of fracture, surgery of the foot or ankle. Allergies and Home Medications Allergies Coded Allergies: Penicillins (Verified Allergy, Unknown, RASH, 11/14/15) Home Medications Diphenhydramine HCl 25 Mg Capsule, 50 MG PO PRN, (Reported) Prednisone 20 Mg Tab, 40 MG PO DAILY Prescribed by: SATURNINO MIRELES on 08/30/17 [id number] Patient Home Medication List Home Medication List Reviewed: Yes Review of Systems Constitutional: No chills, No fever EENTM: No ear discharge, No eye pain Respiratory: No cough, No phlegm Cardiovascular: No chest pain, No edema Past Yziqqqv-Xbgbqn-Ecnsui Hx Patient Social History Alcohol Use: Denies Use Recreational Drug Use: No Smoking Status: Never a Smoker 2nd Hand Smoke Exposure: No Recent Foreign Travel: No Contact w/Someone Who Travel: No Recent Hopitalizations: No Immunizations Up To Date Tetanus Booster (TDap): Less than 5yrs Date of Influenza Vaccine: Sep 24, 2012 Seasonal Allergies Seasonal Allergies: No Past Medical History Surgeries: Yes Gallbladder Respiratory: No Currently Using CPAP: No Currently Using BIPAP: No Cardiac: No Neurological: No Reproductive Disorders: No Female Reproductive Disorders: Denies Sexually Transmitted Disease: No HIV/AIDS: No Genitourinary: Yes UTI-Chronic Gastrointestinal: Yes Pancreatitis, Gall Bladder Disease Musculoskeletal: Yes Rheumatoid Arthritis, Fractures Endocrine: No Loss of Vision: Denies Hearing Impairment: Denies Cancer: No Psychosocial: Yes Anxiety, Depression Integumentary: No Eczema Blood Disorders: No Adverse Reaction/Blood Tranf: No Family Medical History DENIES FAMILY HX No Pertinent Family Hx Physical Exam Vital Signs Vital Signs - First Documented 12/17/18 14:49 Temp 98.0 Pulse 72 Resp 18 B/P (MAP) 124/88 (100) Pulse Ox 99 Capillary Refill : Height, Weight, BMI Height: 5'3.00" Weight: 143lbs. 9.6oz. 64.449706il; 30.0 BMI Method:Stated General Appearance: WD/WN, no apparent distress HEENT: PERRL/EOMI, pharynx normal Neck: full range of motion, normal inspection Cardiovascular: normal peripheral pulses, regular rate, rhythm Respiratory: no respiratory distress, no accessory muscle use Ankles: bilateral ankle non-tender, bilateral ankle normal inspection, bilateral ankle normal range of motion Feet: left foot non-tender, left foot normal inspection; bilateral foot normal range of motion; left foot no evidence of injury; right foot ecchymosis, right foot pain, right foot soft tissue tenderness, right foot swelling Neurologic/Tendon: normal sensation, normal motor functions, normal tendon functions Neurologic/Psychiatric: no motor/sensory deficits, alert, oriented x 3 Skin: normal color, warm/dry Progress/Results/Core Measures Results/Orders My Orders Orders - JOANNE CONNER Ibuprofen Tablet (Motrin Tablet) (12/17/18 15:00) Foot, Right, 3 View (12/17/18 14:53) Medications Given in ED Current Medications Medications Dose Ordered Sig/Josafat Route Start Time Stop Time Status Last Admin Dose Admin Ibuprofen 800 mg ONCE ONCE PO 12/17/18 15:00 12/17/18 15:01 DC 12/17/18 15:28 800 MG Vital Signs/I&O 12/17/18 14:49 Temp 98.0 Pulse 72 Resp 18 B/P (MAP) 124/88 (100) Pulse Ox 99 Progress Progress Note : Time: 15:35 Progress Note Patient has a large area of swelling over the top of her foot with some tenderness to the metatarsals on the right foot. Plan to get an x-ray. Ibuprofen for pain. Diagnostic Imaging Diagonstic Imaging: Xray Plain Films/CT/US/NM/MRI: other (right foot) Comments No acute osseous abnormalities noted. Reviewed: Reviewed by Me Departure Impression Primary Impression: Sprain and strain of foot Additional Impression: Traumatic hematoma of foot Qualified Codes: S90.31XA - Contusion of right foot, initial encounter Disposition: HOME, SELF-CARE Condition: Stable Departure-Patient Inst. Decision time for Depature: 15:37 Referrals: CAITIE PERLA MD (PCP/Family) Primary Care Physician Patient Instructions: Foot Sprain (DC) Add. Discharge Instructions: Elevate your foot when possible. Wrap it with an Moe bandage applied gentle pressure over the hematoma. Apply ice for 20 minutes every 4 hours for the first 3 days. Tylenol 1000 mg every 8 hours in addition to ibuprofen 800 mg every 8 hours as necessary. If you are still having significant pain 7-10 days out then you should follow- up with your primary care doctor for reexamination and possible reimaging for occult fracture. All discharge instructions reviewed with patient and/or family. Voiced understanding. Work/School Note: Work Release Form Date Seen in the Emergency Department: Dec 17, 2018 Return to Work: Dec 18, 2018 Restrictions: Need Release from Doctor Other Restrictions Listed Below: Keep foot elevated when possible; use an Moe bandage and ice. Restrictions: Minimize use of your right foot until 12/23/18. JOANNE CONNER Dec 17, 2018 14:57
[2018-12-17] MEDS ORDERED: IBUPROFEN 800 MG (MOTRIN) TAB PO ONE (15:00)
[2018-12-17 16:00] VITALS: BP 124/88
--- NOTE | 2018-12-17 17:18 | Diagnostic Imaging Report ---
INDICATION: Twisting injury, lightheadedness and dizziness, pop and pain, swelling laterally. FINDINGS: Base of the fifth metatarsal is intact. No dislocation or subluxation at the tarsometatarsal joints. No fracture is identified. No articular incongruity. No focal swelling could be radiographically discerned. IMPRESSION: No acute-appearing abnormality. Dictated by: Dictated on workstation # [id number]
== END 2018-12-17 16:00 | disposition home or self-care (01) ==
LOC: EDUNIT# 14:46 → ER 14:47
DX: S96.911A Strain of unspecified muscle and tendon at ankle and foot level, right foot, initial encounter (principal); M06.9 Rheumatoid arthritis, unspecified; F41.9 Anxiety disorder, unspecified; F32.9 Major depressive disorder, single episode, unspecified; Z88.0 Allergy status to penicillin; Z79.52 Long term (current) use of systemic steroids; Z87.440 Personal history of urinary (tract) infections; Z87.19 Personal history of other diseases of the digestive system; X50.1XXA Overexertion from prolonged static or awkward postures, initial encounter
CPT/HCPCS: 73630

== ENCOUNTER 2021-05-21 16:40 | Emergency (ER) | payer SELFPAY ==
[~2021-05-21] VITALS: Ht 160 cm; Wt 65.8 kg
[~2021-05-21 16:40] MED LIST changes: +SULF1TAB38 PO; +TRM50T PO
[2021-05-21 17:07] VITALS: BP 140/95
[2021-05-21] MEDS ORDERED: DOXY100T2 PO (17:16)
--- NOTE | 2021-05-21 17:16 | ED Integumentary General ---
General Chief Complaint: Skin/Wound Problems Stated Complaint: R LEG WOUND Nursing Triage Note: PT AMBULATE TO ROOM 07 WITH C/O WOUND ON GROIN AREA. Source: patient Exam Limitations: no limitations History of Present Illness Date Seen by Provider: May 21, 2021 Time Seen by Provider: 17:13 Initial Comments To ER with c/o abscess to right groin for 2 days. No fever or chills. Hx of RA and not currently on any treatment for that. no fever ochills. Timing/Duration: yesterday Severity: moderate Associated Symptoms: denies symptoms Allergies and Home Medications Allergies Coded Allergies: Penicillins (Verified Allergy, Unknown, RASH, 11/14/15) Patient Home Medication List Home Medication List Reviewed: Yes Diphenhydramine HCl (Benadryl) 25 Mg Capsule, 50 MG PO PRN, (Reported) Entered as Reported by: MARCIA GONZALES on 08/30/172244 Prednisone (Prednisone) 20 Mg Tab, 40 MG PO DAILY Prescribed by: SATURNINO MIRELES on 08/30/17 0874 Review of Systems Review of Systems Constitutional: see HPI EENTM: see HPI Respiratory: no symptoms reported Cardiovascular: no symptoms reported Genitourinary: no symptoms reported Musculoskeletal: no symptoms reported Skin: see HPI Psychiatric/Neurological: No Symptoms Reported Past Wixurgu-Brynhi-Zctvqy Hx Patient Social History Tobacco Use?: No Smoking Status: Never a Smoker Substance use?: No Alcohol Use?: No Immunizations Up To Date Tetanus Booster (TDap): Less than 5yrs Seasonal Allergies Seasonal Allergies: No Past Medical History Surgeries: Yes Gallbladder Respiratory: No Currently Using CPAP: No Currently Using BIPAP: No Cardiac: No Neurological: No Reproductive Disorders: No Female Reproductive Disorders: Denies Sexually Transmitted Disease: No HIV/AIDS: No Genitourinary: Yes UTI-Chronic Gastrointestinal: Yes Pancreatitis, Gall Bladder Disease Musculoskeletal: Yes Rheumatoid Arthritis, Fractures Endocrine: No Loss of Vision: Denies Hearing Impairment: Denies Cancer: No Psychosocial: Yes Anxiety, Depression Integumentary: No Eczema Blood Disorders: No Adverse Reaction/Blood Tranf: No Family Medical History DENIES FAMILY HX No Pertinent Family Hx Physical Exam Vital Signs Vital Signs - First Documented 05/21/21 17:07 Temp 36.9 Pulse 106 Resp 18 B/P (MAP) 140/95 (110) O2 Delivery Room Air Capillary Refill : Less Than 3 Seconds General Appearance: WD/WN, no apparent distress Neck: non-tender, full range of motion Respiratory: no respiratory distress, no accessory muscle use Neurologic/Psychiatric: alert, normal mood/affect, oriented x 3 Skin: normal color, warm/dry Skin Problem Character: abscess, other (draining punctum to proximal medial right thigh with about 1cm mild induration and no fluctuance, 3cm surrounding erythema. Drainage is bloody purulent. ) Progress/Results/Core Measures Results/Orders My Orders Orders - SATURNINO MIRELES APRN Wound Culture (05/21/21 17:10) Vital Signs/I&O 05/21/21 17:07 Temp 36.9 Pulse 106 Resp 18 B/P (MAP) 140/95 (110) O2 Delivery Room Air Blood Pressure Mean: 110 Departure Communication (Admissions) no treatment done here. Wound culture obtained. Impression Primary Impression: Abscess Disposition: 01 HOME, SELF-CARE Condition: Stable Departure-Patient Inst. Decision time for Depature: 17:15 Referrals: CAITIE PERLA MD (PCP/Family) Primary Care Physician Patient Instructions: Skin Abscess Add. Discharge Instructions: 1. Warm moist compresses a few times a day. Antibiotics as directed, start today. Return to ER for any worsening. Expect continued drainage for the next f ew days. All discharge instructions reviewed with patient and/or family. Voiced understanding. Scripts Doxycycline Hyclate (Doxycycline Hyclate) 100 Mg Tablet 100 MG PO BID, #14 TAB 0 Refills Prov: SATURNINO MIRELES APRN 05/21/21 SATURNINO MIRELES APRN May 21, 2021 17:16
== END 2021-05-21 17:21 | disposition home or self-care (01) ==
LOC: EDUNIT# 16:40 → ER 16:42
DX: L02.415 Cutaneous abscess of right lower limb (principal); Z79.52 Long term (current) use of systemic steroids
CPT/HCPCS: 87070; 87077; 87186; 87205; 99282

== ENCOUNTER → 2023-05-23 | Outpatient (CLI) | payer BC ==
[~2023-05-23] MED LIST changes: +DOXY100T2 PO
--- NOTE | 2023-05-23 19:10 | Diagnostic Imaging Report ---
PROCEDURE: Pelvic comp/transvaginal sonogram. TECHNIQUE: Complete transabdominal and transvaginal pelvic ultrasound was performed. In addition, limited pelvic Doppler was performed. INDICATION: Menstrual irregularity and infertility. The uterus is retroverted measuring 7.9 x 5.6 x 6.0 cm. There is a questionable fibroid in the mid uterus approximately 3.7 cm in size. This obscures the endometrium. Right ovary could not be visualized due to overlying bowel gas. Left ovary measures 2.7 x 2.0 x 2.8 cm. There are follicles in the left ovary. There is blood flow to the left ovary. No adnexal mass or free fluid is detected. IMPRESSION: 1. Probable uterine fibroid, obscuring the endometrium. 2. No other significant abnormality is detected. Dictated by: Dictated on workstation # [id number]
== END ==
LOC: RAD 13:34
PROVIDERS: ATTEND Family Medicine
DX: N97.9 Female infertility, unspecified (principal); N92.6 Irregular menstruation, unspecified
CPT/HCPCS: 76830; 76856

== ENCOUNTER 2023-06-26 05:50 | Outpatient (CLI) | payer BC ==
[~2023-06-26] VITALS: Ht 160 cm; Wt 84.1 kg
== END 2023-06-26 15:26 | disposition home or self-care (01) ==
LOC: PREOP 05:50
PROVIDERS: ATTEND Obstetrics & Gynecology
DX: Z01.818 Encounter for other preprocedural examination (principal)

== ENCOUNTER 2023-07-03 07:44 | Day surgery (SDC) | payer BC ==
[2023-07-03] VITALS (9 sets, daily range): BP systolic 86–117; BP diastolic 46–75
[~2023-07-03] VITALS: Ht 160 cm; Wt 84.1 kg
[2023-07-03] MEDS ORDERED: MIDAZOLAM INJ 2 MG/2 ML VIAL IV ONE (08:30)
[2023-07-03] MEDS: LACTATED RINGERS 1,000 ML 1,000 ML IV PRN ×2 (08:39→09:42)
--- NOTE | 2023-07-03 08:47 | Progress Note-Pre Operative ---
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
[2023-07-03] MEDS ORDERED: LIDOCAINE 1% INJ 20 ML VIAL ONE (08:56)
[2023-07-03] MEDS ORDERED: proPOfol INJECTION 200 MG/20 ML VIAL IV ONE (09:24)
[2023-07-03] MEDS ORDERED: ONDANSETRON INJECTION 4 MG/2 ML (SDV) ONE (09:24)
[2023-07-03] MEDS ORDERED: dexAMETHasone INJ 10 MG/ML 1 ML VIAL ONE (09:24)
[2023-07-03] MEDS ORDERED: LIDOCAINE PF 2% 5 ML VIAL ONE (09:24)
[2023-07-03] MEDS ORDERED: fentaNYL INJECTION 100 MCG/2 ML VIAL ONE (09:24)
[2023-07-03] MEDS ORDERED: MIDAZOLAM INJ 2 MG/2 ML VIAL ONE (09:24)
[2023-07-03] MEDS ORDERED: LIDOCAINE 1% INJ 20 ML VIAL INJ ONE (10:11)
[2023-07-03] MEDS ORDERED: ONDANSETRON INJECTION 4 MG/2 ML (SDV) IVP PRN (10:15)
[2023-07-03] MEDS ORDERED: morphine INJ 10 MG/ML 1ML (SYR OR VIAL) IVP ONE (10:15)
[2023-07-03] MEDS ORDERED: IBUP-1773 PO (10:17)
--- NOTE | 2023-07-03 10:18 | Discharge Inst-Simple/Standard ---
Discharge Inst-Standard Reconcile Patient Problems Problems Reviewed?: Yes Discharge Medications New, Converted or Re-Newed RX: Transmitted to Pharmacy Patient Instructions/Follow Up Plan of Care/Instructions/FU: Follow-up in 1 week. Pelvic rest for 2 weeks Activity as Tolerated: Yes Discharge Diet: Regular Diet ROMERO ARCHER DO Jul 03, 2023 10:18
--- NOTE | 2023-07-03 10:22 | OB/GYN Operative Report ---
Operative Report Date of Procedure:Jul 03, 2023 Preoperative Diagnosis: APURVA-2 Postoperative Diagnosis: Same Name of the Procedure: Loop electrical excisional procedure with ECC Surgeon: Romero Archer Electrical Power Engineer(s): [none] Anesthesia: General LMA Indications for Procedure: This 28-year-old G0 presented with a history of HSIL on her Pap smear And had APURVA-2 colposcopyWe discussed the risk benefits and alternatives in great detail with the patient and patient elected to proceed to a LEEP biopsy. Findings of the Procedure: APURVA 2 Complications: None Disposition: Counts correct x2 patient taken to recovery room in stable condition Description of the Procedure: Informed consent was obtained Patient was taken to the OR [place]. 3 placed under general LMA anesthesia placed in the dorsolithotomy position prepped and draped usual sterile fashion. A timeout was performed. A coated bivalve speculum was placed into the vaginal vault and the cervix was identified and covered with 3% acetic acid solution. The abnormal cells were visualized and using a loop electrical excisional device a LEEP biopsy was performed. An ECC was performed after that and both biopsies were sent to pathology for further analysis. The biopsy site was then cauterized using ball cautery and then covered with Monsel's solution. The estimated blood loss was less than 50 cc fluids were 1200 cc and urine output was 400 cc. The patient tolerated the procedure well was taken to recovery room in stable condition all my counts were correct x2. ROMERO ARCHER DO Jul 03, 2023 10:22
--- NOTE | 2023-07-03 10:22 | Anesthesia-General Post-Op ---
General Patient Condition Mental Status/LOC: Same as Preop Cardiovascular: Satisfactory Nausea/Vomiting: Absent Respiratory: Satisfactory Pain: Controlled Complications: Absent Post Op Complications Complications None Follow Up Care/Instructions Patient Instructions None needed. Anesthesia/Patient Condition Patient Condition Patient is back in [facility] and doing well, no complaints, stable vital signs, no apparent adverse anesthesia problems. No complications reported per nursing. BANDAR COWART DO Jul 03, 2023 10:22
[2023-07-03] MEDS ORDERED: IBUPROFEN 200 MG TABLET PO ONE (11:36)
[2023-07-03] MEDS ORDERED: IBUPROFEN 600 MG TABLET PO ONE (11:45)
== END 2023-07-03 11:52 | disposition home or self-care (01) ==
LOC: SDC 07:44
PROVIDERS: ATTEND Obstetrics & Gynecology
DX: N87.1 Moderate cervical dysplasia (principal); N97.9 Female infertility, unspecified; E28.2 Polycystic ovarian syndrome; Z28.310 Unvaccinated for COVID-19; Z87.891 Personal history of nicotine dependence
CPT/HCPCS: 84703; 87081